=== PATIENT | male | born 1965 | race Caucasian/White ===

== ENCOUNTER 2017-08-31 17:28 | Emergency (ER) | payer BC ==
[2017-08-31] MEDS ORDERED: Midazolam 1 MG/ML 2 ML SDV IVPUSH ONE ×2 (18:47→19:05)
[2017-08-31] MEDS ORDERED: Sodium Chloride 0.9% 1,000 ML IV ONE (18:48)
[2017-08-31] MEDS ORDERED: fentaNYL 100 MCG/2 ML SDV IVPUSH ONE (18:48)
[2017-08-31] MEDS ORDERED: Ondansetron 4 MG/2 ML SDV IV ONE (18:48)
[2017-08-31] MEDS ORDERED: Lidocaine 1% 30 ML SDV INJECT ONE (19:10)
[2017-08-31] MEDS ORDERED: Bupivacaine 0.25% 10 ML SDV INJECT ONE (19:10)
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
== END 2017-08-31 20:27 | disposition home or self-care (01) ==
LOC: DL.ED 17:28
DX: S43.005A Unspecified dislocation of left shoulder joint, initial encounter (principal); I10 Essential (primary) hypertension; Z79.899 Other long term (current) drug therapy; V86.52XA Driver of snowmobile injured in nontraffic accident, initial encounter
CPT/HCPCS: 23650; 73020; 73030; 96361; 96372; 96374; 96375; 99283; J2250; J2405; J3010; J7030